=== PATIENT | female | born 1960 | race Caucasian/White ===

== ENCOUNTER → 2016-06-23 | Outpatient (CLI) | payer OTHER ==
[~2016-06-23] MED LIST: ADVAIR 250-501 EAC1 INH; CALTRATE 600+D PO; CLARITIN10 M2 PO; CLARITIN10 MG PO; LORTAB 2.5/5001 TAB PO; PANTOPRAZOLE SO20 MG PO; PANTOPRAZOLE SO40 MG PO; RESTASIS32 EA OU
--- NOTE | ~2016-06-23 | MY11 ---
[facility] A Service [facility] RADIOLOGY TEXT RESULTS PATIENT: PAUL ABBASI LOCATION: [facility] : 60 UNIT #: [id number] AGE: [address]: Ibrahima Hdz MD SEX: F ORDER DR: [id number] [facility] [address] [place], [place] [address] [id number] O MR#: [id number] Acc #: [id number] NAME: PAUL ABBASI : 1960 SEX: F STUDY DATE/TIME: 06/23/2016 13:28 UNIT: [facility] ROOM: STUDY DESCRIPTION: MY Mammogram Screening Dig Vitaly Attending Physician: Ibrahima Hdz M.D. Ordering Physician: Ibrahima Hdz M.D. Primary Care Physician: Ibrahima Hdz M.D. MEDICAL IMAGING REPORT This report is preliminary unless electronic signature is present EXAM Digital screening mammogram 06/23/2016 [facility] HISTORY 55-year-old woman; no risk elevation. Annual screening. COMPARISON Comparison mammograms date to 01/04/2006, with most recent 06/22/2015. FINDINGS Digital imaging of each breast was completed utilizing a two-view examination of each breast in craniocaudal and mediolateral-oblique projections. Review and interpretation of digital mammograms include a second review in conjunction with FDA-approved CAD device. There is a normal parenchymal presentation bilaterally consistent with the patient's age. There are no breast masses imaged and no parenchymal asymmetry is visualized. There are no suspicious microcalcifications and I see no focal architectural disturbance. IMPRESSION Negative screening digital mammogram. One-year followup recommended. Patients over the age of 40 are entered into a reminder system with target due date for the next mammogram. A result letter will also be sent to the patient. BIRADS: 1 Negative Dictated by... Reynaldo Grewal M.D. [facility] A Service [facility] RADIOLOGY TEXT RESULTS PATIENT: PAUL ABBASI LOCATION: [facility] : 60 UNIT #: [id number] AGE: [address]: Ibrahima Hdz MD SEX: F ORDER DR: THIS IS AN ELECTRONICALLY VERIFIED REPORT Reynaldo Grewal M.D. at 06/23/2016 3:10 PM Rand TD: 06/23/2016 14:55 JOB #: [id number] MEDICAL IMAGING REPORT Page 1 of 1 COPY
== END | disposition home or self-care (01) ==
LOC: CWCC 12:53
DX: Z12.31 Encounter for screening mammogram for malignant neoplasm of breast (principal)
CPT/HCPCS: G0202